=== PATIENT | male | born 1955 | race Caucasian/White ===

== ENCOUNTER 2018-05-18 05:28 | Inpatient (IN) ==
[2018-05-13 09:54] LABS: Basophils % 0.8 % (0.0-0.8); Eosinophils # 0.1 10*3/uL (0.0-0.87); Eosinophils % 2.1 % (0.00-10.9); Hematocrit 41.2 VOL% (42.0-52.0); Hemoglobin 14.2 GM/DL (14.0-18.0); Immature Granulocytes % 0.2 %; Immature Granulocytes Absolute 0.01 #; Lymphocytes # 1.7 10*3/uL (1.4-4.0); Lymphocytes % 35.8 % (21.2-54.2); Mean Corpuscular HGB Conc 34.5 GM/DL (32-36); Mean Corpuscular Hemoglobin 32 PG (27-34); Mean Corpuscular Volume 93.8 FL (87-102); Mean Platelet Volume 10.6 FL (9.6-12.0); Monocytes # 0.4 10*3/uL (0.11-0.8); Monocytes % 8.5 % (1.7-12.7); Neutrophils # 2.5 10*3/uL (1.4-7.4); Neutrophils % 52.6 % (38.7-73.9); Platelet Count 212 T/CUMM (130-400); Red Blood Count 4.39 MC/CUMM (3.8-5.5); Red Cell Distribution Width 12.5 % (9.3-17.3); White Blood Count 4.7 T/CUMM (4-12)
[2018-05-13 09:55] LABS: Mucus,Urine Few /LPF (Occasional); RBC,Urine 1 /HPF (0-4); WBC,Urine 2 /HPF (0-6)
[2018-05-13 09:56] LABS: Apearance,Urine Clear (Clear); Bilirubin,Urine Negative (Negative); Blood, Urine Negative (Negative); Glucose,Urine (UA) Negative (Negative); Ketones,Urine Negative (Negative); Nitrite,Urine Negative (Negative); Protein,Urine Negative; Urine Color Yellow (Yellow); Urine Urobilinogen 0.2 EU/DL (0.2-1.0)
[2018-05-13 10:03] LABS: INR 0.9; PT Patient Result 9.9 SECS; Partial Thromboplastin Time 24.1 SECS (0-40)
[2018-05-13 10:39] LABS: Bilirubin,Total 0.6 MG/DL (0.2-1.0); Calcium 9.1 MG/DL (8.5-10.1); Osmolality,Calculated 280.3 MOS/KG (273-304); Total Protein 7.5 G/DL (6.4-8.3)
[2018-05-18] MEDS ORDERED: ceFAZolin 2,000 MG in PREMIX 1 EACH IV ONE (06:00)
[2018-05-18] MEDS ORDERED: VANCOMYCIN INJ 1,000 MG in SODIUM CHLORIDE 0.9% 250 ML IV ONE (06:00)
[2018-05-18] MEDS ORDERED: VANCOMYCIN 1,000 MG VIAL ONE (06:09)
[2018-05-18] MEDS ORDERED: ROPIVACAINE 0.5% 30 ML VIAL ONE (06:29)
[2018-05-18] MEDS ORDERED: TRANEXAMIC ACID 1,000 MG/10 ML VIAL ONE (06:35)
[2018-05-18] MEDS ORDERED: BACITRACIN OINT 0.9 GM PACK TOP ONE (06:35)
[2018-05-18] MEDS: LACTATED RINGERS 1,000 ML IV SCH ×3 (06:47→17:28)
[2018-05-18] MEDS ORDERED: oxyCODONE IR 5 MG TABLET PO PRN ×2 (08:37)
[2018-05-18] MEDS ORDERED: MAGNESIUM HYDROXIDE SUSP 30 ML UDCUP PO PRN (08:37)
[2018-05-18] MEDS ORDERED: ONDANSETRON 4 MG/2 ML VIAL IV PRN (08:37)
[2018-05-18] MEDS ORDERED: diphenhydrAMINE CAP 25 MG CAPSULE PO PRN (08:37)
[2018-05-18] MEDS ORDERED: ZALEPLON 5 MG CAPSULE PO PRN (08:37)
[2018-05-18] MEDS ORDERED: HYDROmorphone 2 MG/1 ML VIAL IV PRN ×2 (08:37)
[2018-05-18] MEDS ORDERED: PROPOFOL 200 MG/20 ML VIAL IV ONE (09:01)
[2018-05-18] MEDS ORDERED: fentaNYL 100 MCG/2 ML VIAL ONE (09:02)
[2018-05-18] MEDS ORDERED: ACETAMINOPHEN 1,000 MG/100 ML VIAL IV ONE (09:02)
[2018-05-18] MEDS ORDERED: PHENYLEPHRINE 1 MG/10 ML SYRINGE IV ONE (09:02)
[2018-05-18] MEDS ORDERED: PROPOFOL 500 MG/50 ML BOTTLE IV ONE (09:02)
[2018-05-18] MEDS ORDERED: ONDANSETRON 4 MG/2 ML VIAL ONE (09:02)
[2018-05-18] MEDS ORDERED: SODIUM CHLORIDE 0.9% 200 ML IV ONE (09:02)
[2018-05-18] MEDS ORDERED: MIDAZOLAM 2 MG/2 ML VIAL ONE (09:02)
[2018-05-18] MEDS ORDERED: BUPIVACAINE SPINAL 0.75% 2 ML AMP SPINAL ONE (09:11)
[2018-05-18] MEDS: ALLOPURINOL 100 MG TABLET PO SCH (10:08)
[2018-05-18] MEDS: DOCUSATE SODIUM 100 MG CAPSULE PO SCH ×2 (10:08→21:30)
[2018-05-18] MEDS: KETOROLAC 30 MG/1 ML VIAL IV SCH ×3 (12:08→21:23)
[2018-05-18] MEDS: ceFAZolin 2,000 MG in PREMIX 1 EACH IV SCH ×2 (12:09→21:23)
[2018-05-18] MEDS: ACETAMINOPHEN 500 MG TABLET PO SCH ×2 (16:02→21:29)
[2018-05-19] MEDS: LACTATED RINGERS 1,000 ML IV SCH ×3 (01:39→18:13)
[2018-05-19 04:04] LABS: Basophils % 0.5 % (0.0-0.8); Eosinophils # 0.2 10*3/uL (0.0-0.87); Eosinophils % 2.9 % (0.00-10.9); Hematocrit 32.4 VOL% (42.0-52.0); Hemoglobin 10.8 GM/DL (14.0-18.0); Immature Granulocytes % 0.3 %; Immature Granulocytes Absolute 0.02 #; Lymphocytes # 1.5 10*3/uL (1.4-4.0); Mean Corpuscular HGB Conc 33.3 GM/DL (32-36); Mean Corpuscular Hemoglobin 32 PG (27-34); Mean Corpuscular Volume 94.5 FL (87-102); Mean Platelet Volume 10.4 FL (9.6-12.0); Monocytes # 0.7 10*3/uL (0.11-0.8); Monocytes % 11.1 % (1.7-12.7); Neutrophils # 3.5 10*3/uL (1.4-7.4); Neutrophils % 60.2 % (38.7-73.9); Platelet Count 151 T/CUMM (130-400); Red Blood Count 3.43 MC/CUMM (3.8-5.5); Red Cell Distribution Width 12.7 % (9.3-17.3); White Blood Count 5.8 T/CUMM (4-12)
[2018-05-19] MEDS: FONDAPARINUX 2.5 MG/0.5 ML SYRINGE SUBCUT SCH (04:15)
[2018-05-19] MEDS: ACETAMINOPHEN 500 MG TABLET PO SCH ×2 (04:16→09:52)
[2018-05-19] MEDS: KETOROLAC 30 MG/1 ML VIAL IV SCH (04:17)
[2018-05-19 04:20] LABS: Calcium 8.2 MG/DL (8.5-10.1); Osmolality,Calculated 279.4 MOS/KG (273-304); Potassium 3.9 MMOL/L (3.5-5.1)
[2018-05-19] MEDS: DOCUSATE SODIUM 100 MG CAPSULE PO SCH ×2 (09:52→20:39)
[2018-05-19] MEDS: VALSARTAN/HCTZ 80-12.5 MG TABLET PO SCH (09:52)
[2018-05-19] MEDS: ALLOPURINOL 100 MG TABLET PO SCH (09:52)
[2018-05-19] MEDS: CELECOXIB 200 MG CAPSULE PO SCH (15:31)
[2018-05-20] MEDS: FONDAPARINUX 2.5 MG/0.5 ML SYRINGE SUBCUT SCH (03:27)
[2018-05-20 04:34] LABS: Basophils % 0.5 % (0.0-0.8); Eosinophils # 0.2 10*3/uL (0.0-0.87); Eosinophils % 2.6 % (0.00-10.9); Hematocrit 33.7 VOL% (42.0-52.0); Hemoglobin 11.1 GM/DL (14.0-18.0); Immature Granulocytes % 0.2 %; Immature Granulocytes Absolute 0.01 #; Lymphocytes # 1.6 10*3/uL (1.4-4.0); Lymphocytes % 24.4 % (21.2-54.2); Mean Corpuscular HGB Conc 32.9 GM/DL (32-36); Mean Corpuscular Hemoglobin 31 PG (27-34); Mean Corpuscular Volume 95.5 FL (87-102); Mean Platelet Volume 11.3 FL (9.6-12.0); Monocytes # 0.7 10*3/uL (0.11-0.8); Monocytes % 10.1 % (1.7-12.7); Neutrophils # 4.1 10*3/uL (1.4-7.4); Neutrophils % 62.2 % (38.7-73.9); Platelet Count 148 T/CUMM (130-400); Red Blood Count 3.53 MC/CUMM (3.8-5.5); Red Cell Distribution Width 12.7 % (9.3-17.3); White Blood Count 6.5 T/CUMM (4-12)
[2018-05-20] MEDS: CELECOXIB 200 MG CAPSULE PO SCH (09:15)
[2018-05-20] MEDS: DOCUSATE SODIUM 100 MG CAPSULE PO SCH (09:15)
[2018-05-20] MEDS: ALLOPURINOL 100 MG TABLET PO SCH (09:15)
[2018-05-20] MEDS: VALSARTAN/HCTZ 80-12.5 MG TABLET PO SCH (09:15)
[2018-05-20 11:29] VITALS: BP 113/86
== END 2018-05-20 14:50 | disposition home health service (06) | DRG 470 ==
LOC: N.OR 05:28 → N.SDSINP 05:29 → N.3E 09:25
PROVIDERS: ADMIT Orthopaedic Surgery; ATTEND Orthopaedic Surgery

== ENCOUNTER 2021-12-19 12:42 | Inpatient (IN) ==
[2021-12-19] MEDS ORDERED: ONDANSETRON 4 MG/2 ML VIAL IV STA (13:11)
[2021-12-19] MEDS ORDERED: SODIUM CHLORIDE 0.9% 1,000 ML IV STA (13:11)
[2021-12-19] MEDS ORDERED: HYDROmorphone 1 MG/1 ML SYRINGE IV STA ×3 (13:11→16:15)
[2021-12-19 13:16] LABS: Basophils # 0.1 10*3/uL (0.0-0.2); Basophils % 0.6 % (0.0-0.8); Eosinophils # 0.1 10*3/uL (0.0-0.87); Eosinophils % 1.4 % (0.00-10.9); Hematocrit 41.7 VOL% (42.0-52.0); Immature Granulocytes % 0.4 %; Immature Granulocytes Absolute 0.03 #; Lymphocytes # 2.6 10*3/uL (1.4-4.0); Lymphocytes % 33.7 % (21.2-54.2); Mean Corpuscular HGB Conc 33.6 GM/DL (32-36); Mean Corpuscular Volume 96.1 FL (87-102); Mean Platelet Volume 10.6 FL (9.6-12.0); Monocytes # 0.5 10*3/uL (0.11-0.8); Monocytes % 5.7 % (1.7-12.7); Neutrophils % 58.2 % (38.7-73.9); Platelet Count 212 T/CUMM (130-400); Red Blood Count 4.34 MC/CUMM (3.8-5.5); Red Cell Distribution Width 12.9 % (9.3-17.3); White Blood Count 7.8 T/CUMM (4-12)
[2021-12-19 13:31] LABS: INR 0.9; PT Patient Result 10.5 SECS (10.5-12.0); Partial Thromboplastin Time < 20.0 SECS (23.7-32.9)
[2021-12-19 13:33] LABS: Alanine Aminotransferase 22 U/L (16-61); Albumin 4.1 G/DL (3.4-5.0); Alkaline Phosphatase 41 U/L (45-117); Amylase 62 U/L (25-115); Aspartate Amino Transferase 13 U/L (0-37); Blood Urea Nitrogen 20 MG/DL (7-18); Calcium 9.7 MG/DL (8.5-10.1); Carbon Dioxide 26 MMOL/L (21-32); Chloride 102 MMOL/L (98-107); Glucose 174 MG/DL (74-106); Potassium 3.4 MMOL/L (3.5-5.1); Sodium 136 MMOL/L (136-145); Total Protein 7.3 G/DL (6.4-8.2)
[2021-12-19] MEDS ORDERED: ACETAMINOPHEN 325 MG TABLET PO PRN (17:08)
[2021-12-19] MEDS ORDERED: ONDANSETRON 4 MG/2 ML VIAL IV PRN (17:08)
[2021-12-19] MEDS: DEXTROSE 5% LACTATED RINGERS 1,000 ML IV SCH (18:10)
[2021-12-19 18:42] LABS: Calcium 9.1 MG/DL (8.5-10.1); Osmolality,Calculated 277.8 MOS/KG (273-304)
[2021-12-19 21:11] LABS: Basophils % 0.1 % (0.0-0.8); Hematocrit 41.8 VOL% (42.0-52.0); Hemoglobin 13.8 GM/DL (14.0-18.0); Immature Granulocytes % 0.7 %; Immature Granulocytes Absolute 0.09 #; Lymphocytes # 0.5 10*3/uL (1.4-4.0); Mean Corpuscular Volume 97.7 FL (87-102); Mean Platelet Volume 10.3 FL (9.6-12.0); Monocytes # 0.8 10*3/uL (0.11-0.8); Monocytes % 5.9 % (1.7-12.7); Neutrophils % 89.3 % (38.7-73.9); Platelet Count 182 T/CUMM (130-400); Red Blood Count 4.28 MC/CUMM (3.8-5.5); Red Cell Distribution Width 13.2 % (9.3-17.3); White Blood Count 13.4 T/CUMM (4-12)
[2021-12-19 21:32] LABS: Lymphocytes 2 % (20-55); Platelet Estimate Adequate; Total Cells Counted 100
[2021-12-19] MEDS: HYDROmorphone 1 MG/1 ML SYRINGE IV PRN (22:25)
[2021-12-19] MEDS: CLINDAMYCIN INJ 600 MG/50 ML PREMIX IV SCH (22:26)
[2021-12-19] MEDS: CHLORHEXIDINE 0.12% ORAL RINSE 60 ML BOTTLE SWISH/SPIT SCH (22:27)
[2021-12-20] MEDS: CLINDAMYCIN INJ 600 MG/50 ML PREMIX IV SCH ×3 (04:45→21:01)
[2021-12-20] MEDS: HYDROmorphone 1 MG/1 ML SYRINGE IV PRN ×4 (05:02→22:38)
[2021-12-20 05:07] LABS: Basophils % 0.1 % (0.0-0.8); Hemoglobin 12.4 GM/DL (14.0-18.0); Immature Granulocytes % 0.3 %; Immature Granulocytes Absolute 0.03 #; Lymphocytes # 1.4 10*3/uL (1.4-4.0); Lymphocytes % 14.4 % (21.2-54.2); Mean Corpuscular HGB Conc 33.5 GM/DL (32-36); Mean Corpuscular Volume 96.1 FL (87-102); Mean Platelet Volume 10.6 FL (9.6-12.0); Monocytes # 0.8 10*3/uL (0.11-0.8); Monocytes % 8.7 % (1.7-12.7); Neutrophils % 76.5 % (38.7-73.9); Platelet Count 176 T/CUMM (130-400); Red Blood Count 3.85 MC/CUMM (3.8-5.5); Red Cell Distribution Width 13.2 % (9.3-17.3); White Blood Count 9.6 T/CUMM (4-12)
[2021-12-20 05:27] LABS: Mucus,Urine Occasional /LPF (Occasional)
[2021-12-20 05:27] LABS: Calcium 9.3 MG/DL (8.5-10.1); Osmolality,Calculated 273.2 MOS/KG (273-304); Potassium 4.5 MMOL/L (3.5-5.1)
[2021-12-20 05:28] LABS: Bilirubin,Urine Negative (Negative); Blood, Urine Negative (Negative); Glucose,Urine (UA) Negative (Negative); Ketones,Urine Negative (Negative); Nitrite,Urine Negative (Negative); Protein,Urine Negative (Negative); Urine Appearance Clear (Clear); Urine Color Yellow (Yellow); Urine Urobilinogen 0.2 eU/dL (<2.0); Urine pH 5.5 (4.5-8.0)
[2021-12-20 05:39] LABS: Barbiturates Screen,Urine Positive (Negative); Benzodiazepines Screen,Urine Negative (Negative); Cannabinoid Screen,Urine Negative (Negative); Opiate Screen,Urine Positive (Negative); Phencyclidine Screen,Urine Negative (Negative)
[2021-12-20] MEDS: CHLORHEXIDINE 0.12% ORAL RINSE 60 ML BOTTLE SWISH/SPIT SCH ×2 (09:13→21:01)
[2021-12-20] MEDS: PANTOPRAZOLE 40 MG TABLET PO SCH (09:13)
[2021-12-20] MEDS ORDERED: ROCURONIUM 50 MG/5 ML VIAL IV ONE (13:14)
[2021-12-20] MEDS ORDERED: propofoL 200 MG/20 ML VIAL IV ONE (13:14)
[2021-12-20] MEDS ORDERED: ONDANSETRON 4 MG/2 ML VIAL ONE (13:14)
[2021-12-20] MEDS ORDERED: LIDOCAINE 2% 5 ML VIAL ONE (13:14)
[2021-12-20] MEDS ORDERED: fentaNYL 100 MCG/2 ML VIAL ONE (13:14)
[2021-12-20] MEDS ORDERED: SUCCINYLCHOLINE 200 MG/10 ML VIAL ONE (13:14)
[2021-12-20] MEDS ORDERED: MIDAZOLAM 2 MG/2 ML VIAL ONE (13:14)
[2021-12-20] MEDS ORDERED: DEXAMETHASONE 4 MG/1 ML VIAL ONE ×2 (13:14→14:26)
[2021-12-20] MEDS ORDERED: LIDOCAINE 1%/EPI INJ 20 ML VIAL ONE (13:18)
[2021-12-20] MEDS ORDERED: LACTATED RINGERS 1,000 ML IV SCH (14:00)
[2021-12-20] MEDS ORDERED: ePHEDrine 50 MG/ML VIAL ONE (14:11)
[2021-12-20] MEDS ORDERED: PHENYLEPHRINE 1 MG/10 ML SYRINGE IV ONE (14:27)
[2021-12-20] MEDS ORDERED: SEVOFLURANE 1 UNIT/15 MINUTE INH ONE (14:27)
[2021-12-20] MEDS ORDERED: TISSUE ADHESIVE 1 EACH APPLICATOR TOP ONE (14:36)
[2021-12-20] MEDS ORDERED: ONDANSETRON 4 MG/2 ML VIAL IV PRN (15:21)
[2021-12-21] MEDS: DEXTROSE 5% LACTATED RINGERS 1,000 ML IV SCH ×4 (00:01→17:17)
[2021-12-21] MEDS: CLINDAMYCIN INJ 600 MG/50 ML PREMIX IV SCH ×3 (04:21→20:41)
[2021-12-21] MEDS: HYDROmorphone 1 MG/1 ML SYRINGE IV PRN (06:45)
[2021-12-21] MEDS: CHLORHEXIDINE 0.12% ORAL RINSE 60 ML BOTTLE SWISH/SPIT SCH (09:28)
[2021-12-21] MEDS: PANTOPRAZOLE 40 MG TABLET PO SCH (09:28)
[2021-12-22] MEDS: CHLORHEXIDINE 0.12% ORAL RINSE 60 ML BOTTLE SWISH/SPIT SCH ×3 (00:50→23:25)
[2021-12-22] MEDS: DEXTROSE 5% LACTATED RINGERS 1,000 ML IV SCH ×4 (01:12→19:37)
[2021-12-22] MEDS: CLINDAMYCIN INJ 600 MG/50 ML PREMIX IV SCH ×3 (05:02→19:36)
[2021-12-22] MEDS: PANTOPRAZOLE 40 MG TABLET PO SCH (08:20)
[2021-12-23] MEDS: CLINDAMYCIN INJ 600 MG/50 ML PREMIX IV SCH (04:45)
[2021-12-23] MEDS: DEXTROSE 5% LACTATED RINGERS 1,000 ML IV SCH (06:09)
[2021-12-23 08:25] VITALS: BP 160/93
[2021-12-23] MEDS: PANTOPRAZOLE 40 MG TABLET PO SCH (09:31)
[2021-12-23] MEDS: CHLORHEXIDINE 0.12% ORAL RINSE 60 ML BOTTLE SWISH/SPIT SCH (09:32)
== END 2021-12-23 11:13 | disposition home or self-care (01) | DRG 982 ==
LOC: N.ED 12:42 → N.EDINP 17:08 → N.3E 18:19
PROVIDERS: ADMIT Student in an Organized Health Care Education/Training Program; ATTEND Student in an Organized Health Care Education/Training Program